=== PATIENT | male | born 1995 | race Caucasian/White ===

== ENCOUNTER 2018-02-12 21:23 | Emergency (ER) | payer SELFPAY ==
[2018-02-12] MEDS ORDERED: NS 1000 ML 1,000 ML ONE (21:35)
[2018-02-12] MEDS ORDERED: NS 1000 ML 1,000 ML IV ONE (21:35)
[2018-02-12 21:41] VITALS: BMI 28.7
--- NOTE | 2018-02-12 22:06 | DR.GENAD ---
HPI - PCP Primary Care Physician: NFD - Complaint/Symptoms Chief Complaint Doctors Comments: Patient presents to the ED with complaint of shooting methamphetamine for the past eight days. He admits to a few years history of use. Denies any attempt to harm himself Chief Complaint:: PT TO ED VIA EMS PT STATES" I BEEN HAVING DIZZINESS AND I'VE BEEN UP FOR 8 DAYS I BEEN SHOOTING UP METH" - Source History Provided: Patient - Mode of Arrival Mode of Arrival: EMS - Timing Onset of Chief Complaint: 02/12/18 PMH - PMH Past Medical History: Yes Past Medical History: Hypertension Past Surgical History: Yes Past Surgical History Comment: SINUS SURGERY TUBES IN EARS - Family History History of Family Medical Conditions: No - Social History Type of Tobacco Use: Cigarettes Does any household member use tobacco: Yes Alcohol Use: Occasionally Do you use any recreational Drugs:: Yes (METH,XANAX) Lives With: Family Lives Where: Home - infectious screening In the last 2 months have you had wt loss of >10#?: NO Have you had fever, night sweats or hemotysis?: No Have you traveled outside the country in the last 6 months?: No Isolation: Standard ROS - Review of Systems Eyes: No Symptoms Reported ENTM: No Symptoms Reported Respiratoy: No Symptoms Reported Cardiovascular: No Symptoms Reported Gastrointestinal/Abdominal: No Symptoms Reported Genitourinary: No Symptoms Reported Neurological: No Symptoms Reported Musculoskeletal: No Symptoms Reported Integumentary: No Symptoms Reported Hematologic/Lymphatic: No Symptoms Reported Endocrine: No Symptoms Reported Psychiatric: No Symptoms Reported All Other Systems: Reviewed and Negative PE - Vital Signs Vitals: Temperature 98.4 F Pulse Rate 99 Respiratory Rate 16 Blood Pressure 139/68 O2 Sat by Pulse Oximetry 99 - General General Appearance: Alert, In No Apparent Distress - Head Head Exam: Normal Inspection, Atraumatic - Eyes Eye exam: Normal Appearance, PERRL, EOMI - ENT ENT Exam: Normal Exam External Ear Exam: Normal External Inspection TM/Canal Exam: Bilateral Normal Nose Exam: Normal Nose Exam Mouth Exam: Normal Inspection Throat Exam: Normal Inspection - Neck Neck Exam: Normal Inspection, Full ROM - Chest Chest Inspection: Normal Inspection - Respiratory Respiratory Exam: Normal Lung Sounds Bilat Respiratory Exam: Bilateral Clear to Auscultation - Cardiovascular Cardiovascular Exam: Regular Rate, Normal Rhythm - Abdominal Exam Abdominal Exam: Normal Inspection, Normal Bowel Sounds Abdominal Tenderness: negative: RUQ, RLQ, LUQ, LLQ, Epigastrium, Suprapubic, Diffuse, Mild, Moderate, Severe, Other - Extremities Extremities Exam: Normal Inspection, Full ROM - Back Back Exam: Normal Inspection - Neurologic Neurological Exam: Alert, Oriented X3, CN II-XII Intact - Psychiatric Psychiatric Exam: Normal Affect, Normal Mood - Skin Skin Exam: Warm, Dry, Intact ROR - Labs Reviewed Laboratory Results Reviewed?: Yes (Drug Screne: meth,THC) Result Diagrams: 02/12/18 21:25 Laboratory: Sodium 142 mmol/L (136-145) 02/12/18 21:25 Corrected Sodium TNP 02/12/18 21:25 Potassium 4.2 mmol/L (3.5-5.1) 02/12/18 21:25 Chloride 102 mmol/L (98-107) 02/12/18 21:25 Carbon Dioxide 24.3 mmol/L (21-32) 02/12/18 21:25 BUN 12 mg/dL (7-18) 02/12/18 21:25 Creatinine 1.47 mg/dL (0.70-1.30) H 02/12/18 21:25 Est GFR (MDRD) Af Amer > 60 (>60) 02/12/18 21:25 Est GFR (MDRD) Non-Af > 60 (>60) 02/12/18 21:25 Glucose 106 mg/dL (65-99) H 02/12/18 21:25 Calcium 9.1 mg/dL (8.5-10.1) 02/12/18 21:25 Creatine Kinase 144 Units/L (39-308) 02/12/18 21:25 CK-MB (CK-2) 1.2 ng/mL (0-4.0) 02/12/18 21:25 CK/CKMB % Calc 0.8 % (<4) 02/12/18 21:25 Troponin I < 0.02 ng/mL (0-1.5) 02/12/18 21:25 Urine Opiates Screen Negative (NEG=<300) 02/13/18 00:56 Urine Methadone Screen Negative (NEG=<300) 02/13/18 00:56 Ur Barbiturates Screen Negative (NEG=<200) 02/13/18 00:56 Ur Phencyclidine Scrn Negative (NEG=<25) 02/13/18 00:56 Ur Amphetamines Screen Positive (NEG=<1000) 02/13/18 00:56 U Benzodiazepines Scrn Negative (NEG=<200) 02/13/18 00:56 Urine Cocaine Screen Negative (NEG=<300) 02/13/18 00:56 U Marijuana (THC) Screen Positive (NEG=<50) A 02/13/18 00:56 - Diagnosis Discharge Problem: Illicit drug use - Discharge Plan Condition: Stable - Follow ups/Referrals Follow ups/Referrals: NFD,None [Primary Care Provider] - 3 days - Instructions
[2018-02-12 23:33] LABS: BLOOD UREA NITROGEN 12 mg/dL (7-18); CALCIUM 9.1 mg/dL (8.5-10.1); CARBON DIOXIDE 24.3 mmol/L (21-32); CHLORIDE 102 mmol/L (98-107); CREATININE 1.47 mg/dL (0.70-1.30); SODIUM 142 mmol/L (136-145); TROPONIN I < 0.02 ng/mL (0-1.5); eGFR BLACK RACES > 60 (>60); eGFR NON BLACK RACES > 60 (>60)
[2018-02-12 23:38] LABS: CKMB % 0.8 % (<4); CREATINE KINASE 144 Units/L (39-308); CREATINE KINASE MB 1.2 ng/mL (0-4.0)
[2018-02-13 02:01] VITALS: BP 130/63
== END 2018-02-13 02:09 | disposition home or self-care (01) ==
LOC: ER 21:23
DX: R42 Dizziness and giddiness (principal); H53.8 Other visual disturbances; F15.10 Other stimulant abuse, uncomplicated; F12.10 Cannabis abuse, uncomplicated; I10 Essential (primary) hypertension
CPT/HCPCS: 36415; 80048; 80307; 82550; 82553; 84484; 93005; 93010; 96365; 96367; 99283; G0434